=== PATIENT | male | born 1980 | race Caucasian/White ===

== ENCOUNTER 2016-09-18 14:50 | Emergency (ER) | payer MEDICAID | END 2016-09-18 19:08 | disposition home or self-care (01) | LOC: D.ER 14:50 | DX: S02.609A Fracture of mandible, unspecified, initial encounter for closed fracture (principal); X58.XXXA Exposure to other specified factors, initial encounter; Y93.89 Activity, other specified; Y92.89 Other specified places as the place of occurrence of the external cause; R68.84 Jaw pain; I10 Essential (primary) hypertension ==